=== PATIENT | female | born 1930 | race Caucasian/White ===

== ENCOUNTER → 2016-05-15 | Day surgery (SDC) | payer MEDICARE, BC ==
[~2016-05-15] MED LIST: ACETAMINOPHEN PO; ADVIL200 M1 PO; ALEVE PM CAPLE1 EACH PO; ATACAND HCT 16/1 TAB PO; ATACAND16 MG DOB; ATARAX PO; BENZONATATE PO; CEFUROXIME250 M1 PO; CENTRUM SILVER PO; CLARITIN10 M3 PO; COZAAR PO; COZAAR100 MG PO; DITROPAN5 MG PO; DOCUSATE SODIU100 MG PO; DYAZIDE 37.5/251 CAP PO; DYAZIDE 371 CAP 37.5 PO; ECOTRIN325 MG PO; FOSAMAX PO; LASIX PO; LEVAQUIN750 MG PO; LEVOFLOXACIN500 MG PO; MOBIC PO; MONISTAT 11 EA; MYRBETRIQ25 MG PO; NEXIUM PO; OSTEO BI-FLEX1 EAC2 PO; OTEZLA1 EAC1 PO; OTEZLA30 MG PO; OYSTER CALCIUM500 MG PO; POTASSIUM AZELAO1 ML MC; SENNA LAXATIVE25 MG; SYNTHROID PO; TUMERIC PO; TYL325 PO; V-C FORTE; VIT B-12 PO; VITAMIN D 4001 UDTAB PO; VITEYES PO; [UNRECOGNIZED DRUG - OTHER]
--- NOTE | ~2016-05-15 | OR ---
Unit #: [id number] #: [id number] Patient: DEBBI FORMAN [id number] [address] [place], [place] [address] [id number] MR#: [id number] NAME: DEBBI FORMAN. ROOM: Date of Procedure: 05/15/2016 Admission Date: 05/15/2016 Surgeon: Torin Mortensen M.D. : 1930 Attending Physician: Torin Mortensen M.D. Primary Care Physician: Richard Carr M.D. SUR[facility]ERY CENTER OPERATIVE NOTE PROCEDURE PERFORMED Lumbar epidural steroid injection under x-ray guided needle placement with provider administered conscious sedation. PREOPERATIVE DIAGNOSES 1. Acute lumbar radiculitis. 2. Chronic lumbar radicular pain. 3. Spinal stenosis, lumbosacral spine. 4. Multiple-level herniated disk, lumbar spine. 5. Degenerative joint disease, lumbosacral spine. 6. Degenerative disk disease, lumbosacral spine. INDICATIONS FOR PROCEDURE The patient presents today with longstanding history of chronic lumbar radicular and lumbar facet arthralgia pain secondary to her underlying degenerative processes. She is generally fairly well managed medically with ongoing continuous conservative therapy; however, she does occasionally experience exacerbations, which to date have only responded to interventional pain management procedures. She is approximately 3 months out from her last epidural steroid injection and presents today with a 4-week history of crescendo pattern breakthrough pain similar into past incidences, which is again failed to respond to her ongoing continuous conservative measures. She states in the interim since her last visit, she also underwent evaluation for radiofrequency ablation and does not desire further service in that area. After discussing risks and benefits of proceeding today with a lumbar approach epidural steroid injection with potential use of dual needle, the patient agreed this would be the appropriate course of action. DESCRIPTION OF PROCEDURE She was then taken to the operating room, where she was prepped and draped in sterile manner. Standard monitors were applied. She was sedated with 2 mg of IV Versed and required an additional 1 mg of IV Versed throughout the duration of procedure. Lumbar epidural space accessed at L4-L5 level and the L2-L3 level using loss of resistance technique and x-ray guidance. Needle placement confirmed at each level with the injection of 2 mL of Omnipaque at the L4-L5 level. Dye flow was almost entirely in the superior direction owing to an L4-L5 listhesis, most likely at the L2-L3 level. Dye flow was equal in superior and inferior distribution. Following this, the patient received an injectate containing 4 mL normal saline and 40 mg of methylprednisolone at each level for a total injectate volume today of 8 mL normal saline and 80 mg of methylprednisolone. She tolerated this procedure well. She was discharged home with followup Unit #: [id number] #: [id number] Patient: DEBBI FORMAN instructions, which include return to this clinic as early as 09/06/2016, at that point, she will most likely receive an L5-S1 with potential for L2-L3 dual needle access. Dictated by... Rosa Chamorro/chioma TD: 05/15/2016 23:45 JOB #: [id number] SUR[facility]ENTER OPERATIVE NOTE Page 1 of 1 X Dontrell Mortensen MD X PROCEDURE OPERATIVE NOTE
== END | disposition home or self-care (01) ==
LOC: CCSC 09:44
DX: M51.16 Intervertebral disc disorders with radiculopathy, lumbar region (principal); M47.27 Other spondylosis with radiculopathy, lumbosacral region; M48.07 Spinal stenosis, lumbosacral region; M51.17 Intervertebral disc disorders with radiculopathy, lumbosacral region; Z85.038 Personal history of other malignant neoplasm of large intestine; Z90.710 Acquired absence of both cervix and uterus
CPT/HCPCS: J1040; J2250

== ENCOUNTER → 2016-08-28 | Day surgery (SDC) | payer MEDICARE, BC ==
--- NOTE | ~2016-08-28 | OR ---
Unit #: [id number] #: [id number] Patient: DEBBI FORMAN [id number] [address] [place], [place] [address] [id number] O MR#: [id number] NAME: DEBBI FORMAN. ROOM: Date of Procedure: 08/28/2016 Admission Date: 08/28/2016 Surgeon: Torin Mortensen M.D. : 1930 Attending Physician: Dontrell Mortensen Primary Care Physician: Richard Carr M.D. SURGERY CENTER OPERATIVE NOTE PROCEDURE PERFORMED Lumbar epidural steroid injection under x-ray guided needle placement with provider administered conscious sedation. PREOPERATIVE DIAGNOSES 1. Acute lumbar radiculitis. 2. Degenerative joint disease, lumbosacral spine. 3. Spinal stenosis, lumbosacral spine. 4. Degenerative disk disease, lumbosacral spine. INDICATIONS FOR PROCEDURE The patient presents today with longstanding history of chronic lumbar radicular pain secondary to her underlying degenerative processes. She is generally fairly well managed medically with ongoing continuous measures containing medication treatment as well as self-directed physical activity. She does however occasionally experience acute exacerbations, which is failed to respond to her ongoing conservative therapy and to date have only responded to epidural steroid injections. Her usual amount of relief is 80% for 8 to 10 weeks. She is currently experiencing just such an exacerbation which had been present for approximately 2 to 4 weeks advancing in a crescendo pattern and to the point that is now impacting her activities of daily living. She presents today requesting an epidural steroid injection. After discussing risks and benefits of proceeding today with an epidural steroid injection utilizing dual needle access technique, the patient agreed this would be the appropriate course of action. DESCRIPTION OF PROCEDURE She was then taken to the operating room, where she was prepped and draped in sterile manner. Standard monitors were applied. She was sedated initially with 1 mg of IV Versed and required an additional 1 mg of IV Versed throughout the duration of procedure. Lumbar epidural space was accessed at the L5-S1 and L2-L3 levels using loss of resistance technique and x-ray guidance. Needle placement was confirmed with injection of 2 mL of Omnipaque at each site. There was good superior and inferior flow at both needle locations. Total x-ray time for this dual needle placement was 8 seconds. Following successful needle placement confirmation, the patient received an injectate containing 4 mL normal saline and 40 mg of methylprednisolone at each level for a total injectate volume of 8 mL normal saline and 80 mg of methylprednisolone. She tolerated this procedure well. She was discharged home with followup instructions, which include an offer to return to this clinic as early as 12/06/2016 if we could be of further service to her. She was instructed if she was Unit #: [id number] #: [id number] Patient: DEBBI FORMAN asymptomatic at that time to simply not keep that appointment and to follow up with us and/or her referring provider at such point as we could be of further service. She was further instructed if she was to become convinced that the shots were not helping to simply stop these appointments and return to her primary and/or referring provider for potential more aggressive pain management referral. Dictated by... Rosa Chamorro/chioma TD: 08/28/2016 15:41 JOB #: [id number] SUR[facility]ERY CENTER OPERATIVE NOTE Page 1 of 1 X Dontrell Mortensen MD X PROCEDURE OPERATIVE NOTE
== END | disposition home or self-care (01) ==
LOC: CCSC 09:00
DX: G89.29 Other chronic pain (principal); M51.17 Intervertebral disc disorders with radiculopathy, lumbosacral region; M47.27 Other spondylosis with radiculopathy, lumbosacral region; M48.07 Spinal stenosis, lumbosacral region; E89.0 Postprocedural hypothyroidism; Z87.440 Personal history of urinary (tract) infections; Z85.038 Personal history of other malignant neoplasm of large intestine; Z88.1 Allergy status to other antibiotic agents; Z79.891 Long term (current) use of opiate analgesic; Z79.899 Other long term (current) drug therapy; Z96.642 Presence of left artificial hip joint; Z90.710 Acquired absence of both cervix and uterus; Z98.890 Other specified postprocedural states
CPT/HCPCS: J1040; J2250